=== PATIENT | female | born 1990 | race Caucasian/White ===

== ENCOUNTER 2018-07-04 08:57 | Inpatient (IN) | payer OTHER ==
[2018-07-05] MEDS ORDERED: TERBUTALINE 1 MG/ML VIAL SQ PRN (04:37)
[2018-07-05] MEDS ORDERED: OXYTOCIN 20 UNITS/1000 ML NS 1,000 ML IV SCH ×2 (04:37→11:00)
[2018-07-05] MEDS ORDERED: LIDOCAINE 1% (PF) 10 MG/ML (30 ML SDV) SQ PRN (04:37)
[2018-07-05] MEDS ORDERED: OXYTOCIN 10 UNIT/ML 1 ML VIAL IM PRN (04:37)
[2018-07-05] MEDS ORDERED: METHYLERGONOVINE 0.2 MG/ML 1 ML AMP IM PRN (04:37)
[2018-07-05] MEDS ORDERED: CARBOPROST TROMETHAMINE 250 MCG/ML 1 ML AMP IM PRN (04:37)
[2018-07-05 04:52] VITALS: BMI 33.4
[2018-07-05 05:01] LABS: Basophils % (A) 0 %; Eosinophils # (A) 0.1 k/uL (0-0.7); Eosinophils % (A) 1 %; HCT 36.3 % (34.0-46.0); HGB 12.2 gm/dL (11.4-16.0); Lymphocytes # (A) 2.8 k/uL (1.0-4.8); Lymphocytes % (A) 21 %; MCH 30.4 pg (25.0-35.0); MCHC 33.5 g/dL (31.0-37.0); MCV 90.9 fL (80.0-100.0); Mean Platelet Volume 8.9; Monocytes % (A) 8 %; Neutrophils # (A) 8.8 k/uL (1.3-7.7); Neutrophils % (A) 68 %; Platelet Count 233 k/uL (150-450); RDW 13.2 % (11.5-15.5)
[2018-07-05] MEDS: LACTATED RINGERS 1,000 ML IV SCH ×3 (05:33→08:20)
--- NOTE | 2018-07-05 06:18 | P.HPOB ---
History of Present Illness H&P Date: 07/05/18 Chief Complaint: Contractions. This patient is a pleasant 28-year-old 2 para 1 female estimated date of confinement 07/04/2018 estimated gestational age 40 and one sevenths weeks who presents to labor and delivery with complaints of contractions this morning. Patient's cervix is 3-4 cm dilated thought to be in early labor. care has been uncomplicated. Review of Systems Gastrointestinal: Reports heartburn Genitourinary: Reports Menstruation: Reports amenorrhea Past Medical History Past Medical History: No Reported History History of Any Multi-Drug Resistant Organisms: None Reported Additional Past Surgical History / Comment(s): [place] tooth extraction, Abcess removed from tailbone Past Anesthesia/Blood Transfusion Reactions: No Reported Reaction Past Psychological History: No Psychological Hx Reported Smoking Status: Never smoker Past Alcohol Use History: None Reported Past Drug Use History: None Reported - Past Family History Mother Family Medical History: No Reported History Medications and Allergies Home Medications Medication Instructions Recorded Confirmed Type Pnv No.95/Ferrous Fum/Folic AC 1 each PO DAILY 07/05/18 07/05/18 History [ Multivitamin Tablet] Allergies Allergy/AdvReac Type Severity Reaction Status Date / Time No Known Allergies Allergy Verified 07/05/18 04:37 Exam Vital Signs Temp Pulse Resp BP Pulse Ox 07/05/18 04:44 98.4 F 83 16 130/81 98 Intake and Output 07/04/18 07/04/18 07/05/18 14:59 22:59 06:59 Other: # Voids 1 Weight 99.79 kg - OBG Physical Exam Abdomen: bowel sounds normal, no diffuse tenderness, no bruit present, no guarding noted, no hepatomegaly, no splenomegaly, no mass Vulva: both: normal Vagina: normal moisture (Cervix is 3-4 cm dilated 50% effaced -2 station.), no discharge Cervix: no lesion, no discharge Uterus: enlarged (Fundal height is 40 cm.) Results blood work shows she is B+, rubella immune, RPR nonreactive, hepatitis B negative, HIV is nonreactive, group B strep was negative, Glucola was normal, ultrasounds have shown normal anatomy. Estimated weight is approximately 8 pounds. Result Diagrams: 07/05/18 04:40 Abnormal Lab Results - Last 24 Hours (Table) 08/14/18 Range/Units 04:40 WBC 13.0 H (3.8-10.6) k/uL Neutrophils # 8.8 H (1.3-7.7) k/uL Assessment and Plan Assessment: This is a pleasant 28-year-old 2 para 1 female 40 and one sevenths weeks gestation who presents with complaints of contractions and felt to be in early labor. Plan is augmentation of labor as necessary and anticipate vaginal delivery. (1) Third trimester Current Visit: Yes Status: Acute Code(s): Z34.93 - ENCNTR FOR SUPRVSN OF NORMAL PREG, UNSP, THIRD TRIMESTER SNOMED Code(s): 04358463 (2) Normal labor Current Visit: Yes Status: Acute Code(s): O80 - ENCOUNTER FOR FULL-TERM UNCOMPLICATED DELIVERY; Z37.9 - OUTCOME OF DELIVERY, UNSPECIFIED SNOMED Code(s ): 87377799
[2018-07-05] MEDS ORDERED: ROPIVACAINE 100 MG, fentaNYL (PF) 200 MCG in SODIUM CHLORIDE 0.9% 76 ML EPIDURAL ONE (09:26)
[2018-07-05] MEDS ORDERED: HYDROCORTISONE 2.5% RECTAL CREAM 30 GM TUBE RECTAL PRN (11:00)
[2018-07-05] MEDS ORDERED: BENZOCAINE/MENTHOL SPRAY 1 GM/SPRAY AEROSOL TOPICAL PRN (11:00)
[2018-07-05] MEDS ORDERED: BISACODYL 10 MG SUPP RECTAL PRN (11:00)
[2018-07-05] MEDS ORDERED: diphenhydrAMINE 25 MG CAP PO PRN (11:00)
[2018-07-05] MEDS ORDERED: ZOLPIDEM 5 MG TAB PO PRN (11:00)
[2018-07-05] MEDS ORDERED: SIMETHICONE 80 MG CHEWABLE PO PRN (11:00)
[2018-07-05] MEDS ORDERED: WITCH HAZEL 1 EACH MED..PAD TOPICAL PRN (11:00)
[2018-07-05] MEDS ORDERED: LANOLIN CREAM 5 GM TUBE TOPICAL PRN (11:00)
[2018-07-05] MEDS ORDERED: diphenhydrAMINE 50 MG/ML 1 ML VIAL IVP PRN (11:00)
[2018-07-05] MEDS: SENNOSIDES-DOCUSATE SODIUM 1 EACH TAB PO SCH ×2 (11:13→19:25)
[2018-07-05] MEDS: IBUPROFEN 600 MG TAB PO PRN ×2 (12:14→17:57)
[2018-07-05] MEDS ORDERED: ONDANSETRON 4 MG/2 ML VIAL IVP STA (13:11)
--- NOTE | 2018-07-05 18:20 | P.PROBDLV ---
Vaginal Delivery Note - . Vaginal Delivery Note: Normal vaginal delivery viable female Apgars 9 and 9 delivery time is 1047 hrs. Please see dictated H&P for intimate details of this patient's admission. In brief summary this is a pleasant 28-year-old 2 para 1 female 40 and one sevenths weeks gestation admitted to labor and delivery initially for induction but came in earlier with complaints of contractions found to be in early labor. Patient is 3-4 cm dilated has artificial rupture membranes for clear fluid. Labor is augmented with Pitocin per protocol. Patient's labor progresses and she does get an epidural for pain control. Patient gets to complete pushes the head to the perineum. Posterior perineum was supported and we've controlled delivery of 's head over the intact perineum. Mouth and nares are bulb suctioned. There is a nuchal cord 1 which is loose and reduced. Then have delivery the anterior and posterior shoulder and rest this infant's body. This is a vigorous viable female Apgars 9 and 9 delivery time was 1047 hrs. After delivery of the the umbilical cord is doubly clamped and cut appears to be trivascular. Placenta spontaneously delivered intact estimated blood loss is 100 mL. There are no lacerations and no repair. Infant and mother are stable delivery room.
[2018-07-05 20:16] VITALS: RESP 16
[2018-07-05] MEDS: ACETAMINOPHEN TAB 325 MG TAB PO PRN (21:59)
[2018-07-06 00:03] VITALS: PULSE 89
[2018-07-06] MEDS: IBUPROFEN 600 MG TAB PO PRN ×2 (04:04→11:32)
--- NOTE | 2018-07-06 05:30 | P.PNOBGVD ---
Subjective - Subjective Patient reports: Reports appetite normal, Reports voiding normally, Reports pain well controlled, Reports ambulating normally : doing well Objective - Latest Vital Signs Latest vital signs: Vital Signs Temp Pulse Resp BP 07/06/18 00:00 98.0 F 89 16 120/69 07/05/18 20:00 98.6 F 91 16 130/78 07/05/18 15:40 98.2 F 84 18 115/69 07/05/18 13:00 97.9 F 89 18 118/75 07/05/18 12:30 98.3 F 98 18 139/72 07/05/18 12:00 97.2 F L 75 18 122/76 07/05/18 11:45 97.9 F 77 18 119/79 07/05/18 11:30 84 114/77 07/05/18 11:15 98.1 F 94 18 129/77 07/05/18 11:00 98.3 F 82 18 127/71 Intake and Output 07/05/18 07/05/18 07/06/18 14:59 22:59 06:59 Intake Total 17 Output Total 100 Balance -83 Intake: Intake, IV Titration 17 Amount Oxytocin 20 Units/1000 ml 17 Ns 1,000 ml @ 1 MILLIUNIT/MIN 3 mls/hr IV .Q24H DIANA Rx#:[id number] Output: Estimated Blood Loss 100 Other: # Voids 1 1 1 - Exam Lungs: bilateral: normal Chest: Normal S1, Normal S2 Extremities: Present: normal Abdomen: Present: normal appearance, soft Uterus: Present: normal, firm Assessment and Plan Assessment: day #1. Patient is resting without complaints and wishes to go home. Vital signs are stable and she is afebrile. Uterus is firm nontender she is having normal lochia. Impression is a normal course. Plan is to continue routine care discharge home later today. (1) Third trimester Current Visit: Yes Status: Acute Code(s): Z34.93 - ENCNTR FOR SUPRVSN OF NORMAL PREG, UNSP, THIRD TRIMESTER SNOMED Code(s): 73196161 (2) Normal labor Current Visit: Yes Status: Acute Code(s): O80 - ENCOUNTER FOR FULL-TERM UNCOMPLICATED DELIVERY; Z37.9 - OUTCOME OF DELIVERY, UNSPECIFIED SNOMED Code(s ): 95014827
--- NOTE | 2018-07-06 05:35 | P.DS ---
Providers Date of admission: 07/05/18 04:20 Expected date of discharge: 07/06/18 Attending physician: Feliz Gayle Primary care physician: Gina Lorenz - Discharge Diagnosis(es) (1) Third trimester Current Visit: Yes Status: Acute (2) Normal labor Current Visit: Yes Status: Acute Hospital Course: Please see dictated H&P for intimate details of this patient's admission. Brief summary this is a pleasant 28-year-old 2 para 1 female 40 and one sevenths weeks gestation admitted to labor and delivery in early labor. She was on have a vaginal delivery viable female infant. Please see dictated delivery note. day 1 she is doing well wishes to go home. Vital signs are stable she is afebrile. Patient's felt be stable for discharge home follow up with me in 6 weeks. Procedures: Normal vaginal delivery. Patient Condition at Discharge: Good Plan - Discharge Summary New Discharge Prescriptions: New Ibuprofen [Motrin] 600 mg PO Q6HR PRN #40 tab PRN Reason: Mild Pain Or Fever >= 100.5 No Action Pnv No.95/Ferrous Fum/Folic AC [ Multivitamin Tablet] 1 each PO DAILY Discharge Medication List Pnv No.95/Ferrous Fum/Folic AC [ Multivitamin Tablet] 1 each PO DAILY [History] Ibuprofen [Motrin] 600 mg PO Q6HR PRN #40 tab 07/06/18 [Rx] Follow up Appointment(s)/Referral(s): Feliz Gayle MD [STAFF PHYSICIAN] - 08/16/18 11:15 am Patient Instructions/Handouts: Vaginal Delivery (DC) Activity/Diet/Wound Care/Special Instructions: No intercourse or anything per vagina for 6 weeks. Please call if any fever, chills, excessive vaginal bleeding, and/or abdominal pain. Discharge Disposition: HOME SELF-CARE
[2018-07-06 09:10] VITALS: BP 128/78; TEMP 98
[2018-07-06] MEDS: ACETAMINOPHEN TAB 325 MG TAB PO PRN (09:21)
[2018-07-06] MEDS: SENNOSIDES-DOCUSATE SODIUM 1 EACH TAB PO SCH (09:21)
== END 2018-07-06 11:45 | disposition home or self-care (01) | DRG 775 ==
LOC: 4FBP 07-05 04:20
PROVIDERS: ADMIT Obstetrics & Gynecology; ATTEND Obstetrics & Gynecology
PROC: 10E0XZZ Delivery of Products of Conception, External Approach (ICD-10-PCS; principal; 2018-07-05)
PROC: 00HU33Z Insertion of Infusion Device into Spinal Canal, Percutaneous Approach (ICD-10-PCS; 2018-07-05)
PROC: 3E0R3BZ Introduction of Anesthetic Agent into Spinal Canal, Percutaneous Approach (ICD-10-PCS; 2018-07-05)
DX: O69.81X0 Labor and delivery complicated by cord around neck, without compression, not applicable or unspecified (principal); Z37.0 Single live birth; Z3A.40 40 weeks gestation of pregnancy
CPT/HCPCS: 85025